=== PATIENT | female | born 1995 | race Caucasian/White ===

== ENCOUNTER 2025-08-05 14:39 | Outpatient (REF) | payer SELFPAY ==
--- OUTSIDE RECORDS SUMMARY | 2025-08-05 13:45 | XMS_ITS | Encounter Summary ---
Author Organization [employer] Address [address] [place] [address] [address] [place] [address] Care Team Providers Care Ophthalmic Lens Inspector Name Role Phone Anika Harrison MD Primary Care Provider [phone] Encounter Details Date Type Department Care Team (Late st Contact Info) Description 08/05/2025 1:45 PM EST Office Visit [facility] [address] [place], [place] [phone] Anika Harrison MD [address] [place], [place] [phone] Routine general medical examination at a health care facility (Primary Dx); Allergic rhinitis, unspecified seasonality, unspecified trigger; Intrinsic eczema; Low grade squamous intraepith lesion on cytologic smear cervix (lgsil); Chronic pain of both knees; Easy bruisability; Recurrent sinusitis; Arthralgia of both hands; Arthralgia of both knees Social History Tobacco Use Types Packs/Day Years Used Date Smoking Tobacco: Never Passive Smoke Exposure: Never Smokeless Tobacco: Never Depression Answer Date Recorded Patient Health Questionnaire-9 Score 0 08/05/2025 Patient Health Questionnaire-9 Score 0 08/05/2025 Last PHQ-9: Questionnaire Data Not on file 1 10/05/2024 Housing Stability Answer Date Recorded What is your housing situation today? I have monika pride 08/05/[address] you li ve. Do you have problems with any of the following? None of the above 08/05/2025 Food Insecurity Answer Date Recorded Within the past 12 months, y ou worried that your food would run out before you got money to buy more: Never True 08/05/2025 Within the past 12 months,th e food you bought just didn't last and you didn't have enough money to get more: Never True 07/2025 Transportation Answer Date Recorded In the past 12 months, has l ack of transportation kept you from medical appts, meetings, work or from getting things needed for daily living? No 08/05/2025 Utilities Answer Date Recorded In the past 12 months, has t he electric, gas, oil or water company threatened to shut off services in your home? No 08/05/2025 Depression Answer Date Recorded Patient Health Questionnaire-2 Score 0 08/05/2025 Internet Access Answer Date Recorded Internet Access Q1 Yes 08/05/2025 Internet Access Q2 Not on file 08/05/2025 Comments Unknown Sex and Gender Information Value Date Recorded Sex Assigned at Female 07/25/2022 10:14 AM EDT Legal Sex Female 10:14 AM EDT Gender Identity Female 07/25/2022 10:14 AM EDT Sexual Orientation Straight 07/25/2022 10 :14 AM EDT documented as of this encounter Last Filed Vital Signs Vital Sign Reading Time Taken Comments Blood Pressure 120/64 08/05/2025 1:52 PM EST Pulse 78 08/05/2025 1:52 PM EST Temperature 36.2 C (97.1 F) 08/05/2025 1:52 PM EST Respiratory Rate 20 08/05/2025 1:52 PM EST Oxygen Saturation 99% 08/05/2025 1:52 PM EST Inhaled Oxygen Concentration - - Weight 75.8 kg (167 lb) 08/05/2025 1:52 PM EST Height 156 cm (5' 1.42 ) 08/05/2025 1:52 PM EST Body Mass Index 31.12 08/05/2025 1:52 PM EST documented in this encounter Functional Status * Over the past 2 weeks, how often have you been bothered by any of the following problems? Question Answer Date of Assessment Author Patient Health Questionnaire -2 Score 0 08/05/2025 1:57 PM EST Mary Ellen Adkins MA * Little interest or pleasure in doing things Answer Date of Assessment Author Not at all 08/05/2025 1:57 PM EST Ambrocio Adkins MA * Feeling down, depressed, or hopeless Answer Date of Assessment Author Not at all 08/05/2025 1:57 PM Ambrocio Calvin MA * Trouble falling or staying asleep, or sleeping too much Answer Date of Assessment Author Not at all 08/05/2025 1:57 PM Ambrocio Calvin MA * Feeling tired or having little energy Answer Date of Assessment Author Not at all 08/05/2025 1:57 PM Ambrocio Calvin MA * Poor appetite or overeating Answer Date of Assessment Author Not at all 08/05/2025 1:57 PM Ambrocio Calvin MA * Feeling bad about yourself - or that you are a failure or have let yourself or your family down Answer Date of Assessment Author Not at all 08/05/2025 1:57 PM Ambrocio Calvin MA * Trouble concentrating on things, such as reading the newspaper or watching television Answer Date of Assessment Author Not at all 08/05/2025 1:57 PM Ambrocio Calvin MA * Moving or speaking so slowly that other people could have noticed? Or the opposite - being so fidgety or restless that you have been moving around a lot more than usual. Answer Date of Assessment Author Not at all 08/05/2025 1:57 PM Ambrocio Calvin MA * Thoughts that you would be better off or hurting yourself in some way Answer Date of Assessment Author Not at all 08/05/2025 1:57 PM Ambrocio Calvin MA * Patient Health Questionnaire-9 Score Answer Date of Assessment Author 0 08/05/2025 1:57 PM Ambrocio Calvin MA * Over the last 2 weeks, how often have you been bothered by any of the following problems? Question Answer Date of Assessment Author Feeling nervous, anxious, or on edge 0 08/05/2025 1:57 PM Mary Ellen Calvin MA Not being able to stop or co ntrol worrying 0 08/05/2025 1:57 PM Mary Ellen Calvin MA Worrying too much about diff erent things 0 08/05/2025 1:57 PM EST Mary Ellen Adkins MA Trouble relaxing 0 08/05/2025 1:57 PM EST Mary Ellen Valle MA Being so restless that it is hard to sit still 0 08/05/2025 1:57 PM EST Mary Ellen Adkins MA Becoming easily annoyed or irritable 0 08/05/2025 1:57 PM EST Mary Ellen Adkins MA Feeling afraid as if somethi ng awful might happen 0 08/05/2025 1:57 PM EST Mary Ellen Adkins MA ALEXANDER-7 Total Score 0 08/05/2025 1:57 PM EST Mary Ellen Adkins MA documented as of this encounter Miscellaneous Notes * Assessment & Plan Note - Anika Harrison MD - 08/05/2025 6:11 AM ESTAssociated Problem(s): Low grade squamous intraepith lesion on cytologic smear cervix (lgsil) 07/2023 PAP LSIL Plan: repeat PAP one year 08/2024 PAP Negative cytology Plan: repeat PAP 3 yrs documented in this encounter Plan of Treatment Scheduled Orders Name Type Priority Associated Diagnoses Orde r Schedule XR Knee 3 Views Left Imaging Routine Chronic pain of both knees Expected: 08/05/2025, Expires: 08/05/2026 XR Knee 3 Views Right Imaging Routine Chronic pain of both knees Expected: 08/05/2025, Expires: 08/05/2026 Comprehensive Metabolic Panel Lab Routine Recurrent sinusitis Expected: 08/05/2025 (Approximate), Expires: 08/05/2026 OANH Screen,IFA, with Reflex to Titer and Pattern Lab Routine Arthralgia of both hands Arthralgia of both knees Expected: 08/05/2025 (Approximate), Expires: 08/05/2026 Rheumatoid Factor Lab Routine Arthralgia of both hands Arthralgia of both knees Expected: 08/05/2025 (Approximate), Expires: 08/05/2026 Sed Rate by Modified [place] Lab Routine Arthralgia of both hands Arthralgia of both knees Expected: 08/05/2025 (Approximate), Expires: 08/05/2026 C-reactive Protein Lab Routine Arthralgia of both hands Arthralgia of both knees Expected: 08/05/2025 (Approximate), Expires: 08/05/2026 TSH with Reflex to Free T4 Lab Routine Arthralgia of both hands Arthralgia of both knees Expected: 08/05/2025 (Approximate), Expires: 08/05/2026 documented as of this encounter Procedures Procedure Name Priority Date/Time Associated Diagnosis Comments CBC WITH AUTO DIFFERENTIAL Routine 08/05/2025 2:51 PM EST Easy bruisability Recurrent sinusitis Arthralgia of both hands Arthralgia of both knees APTT Routine 08/05/2025 2:51 PM EST Easy bruisability PROTHROMBIN TIME-INR Routine 08/05/2025 2:51 PM EST Easy bruisability documented in this encounter Results * Prothrombin Time-INR (08/05/2025 2:51 PM EST) Prothrombin Time 11.9 11.2 - 13.5 SEC [facility] INTERNATIONAL NORM RATIO 1.0 0.9 - 1.1 [facility] Comment:INTERNATIONAL NORMAL IZED RATIO (INR) REFERENCE RANGES Reference RangeFor patients not on anticoagulant therapy: 0.9 - 1.1INR ranges for oral anticoagulanttherapy:For prevention and treatment of venous thrombosis and pulmonary embolism: 2.0 - 3.0For acute myocardial infarction with aspirin therapy: 2.0 - 3.0For acute myocardial infarction without aspirin therapy: 3.0 - 4.0For patients with mechanical prosthetic heart valves: 2.5 - 3.5 Blood Venous blood specimen / Unknown 08/05/2025 2:51 PM EST 08/05/2025 4:08 PM EST us Anika Harrison MD LAB BLOOD ORDERABLES Final Resul t [facility] [address] [place] [phone] * Partial Thromboplastin Time, Activated (APTT) (08/05/2025 2:51 PM EST) Pathologist [facility] Partial Thromboplastin Time 28.6 26.7 - 34.1 SEC [facility] Blood Venous blood specimen / Unknown 08/05/2025 2:51 PM EST 08/05/2025 4:08 PM EST us Anika Harrison MD LAB BLOOD ORDERABLES Final Resul t [facility] [address] [place] [phone] * (ABNORMAL) CBC auto differential (08/05/2025 2:51 PM EST) [facility] White Blood Count 5.9 4.8 - 10.8 X10*3/uL [facility] Red Blood Count 4.75 4.20 - 5.50 X10*6/uL [facility] Hemoglobin 12.8 12.0 - 16.0 g/dl [facility] Hematocrit 39.0 37.0 - 47.0 % [facility] Mean Corpuscular Volume 82.1 80.0 - 98.0 fL [facility] Mean Corpuscular Hemoglobin 26.9(L) 27.0 - 33.0 pg [facility] Mean Corpuscular HGB Conc 32.8 31.0 - 35.0 g/dl [facility] Red Cell Distribution Width 12.8 11.0 - 16.0 % [facility] Platelet Count 286 160 - 400 X10*3/uL [facility] Mean Platelet Volume 9.6 9.4 - 12.3 fL [facility] Neutrophils Percent Auto 45.1 45 - 73 % [facility] Imm Gran Pct Auto 0.3 0.0 - 0.4 % [facility] Lymphocytes Percent Auto 44.8(H) 20 - 40 % [facility] Monocytes Percent Auto 7.8 2 - 11 % [facility] Eosinophils Percent Auto 1.2 0 - 4 % [facility] Basophils Percent Auto 0.8 0 - 2 % [facility] NRBC Pct Auto 0.0 0.0 - 0.2 /100WBC [facility] Neutrophils Absolute Auto 2.7 2.0 - 8.3 x10*3/uL [facility] Imm Gran Abs Auto 0.02 0.00 - 0.03 X10*3/uL [facility] Lymphocytes Absolute Auto 2.7 1.2 - 4.9 X10*3/uL [facility] Monocytes Absolute Auto 0.5 0.1 - 1.2 X10*3/uL [facility] Eosinophils Absolute Auto 0.1 0.0 - 0.4 X10*3/uL [facility] Basophils Absolute Auto 0.1 0.0 - 0.2 X10*3/uL [facility] NRBC Abs Auto 0.000 0.0 - 0.012 X10*3/uL [facility] Blood Venous blood specimen / Unknown 08/05/2025 2:51 PM EST 08/05/2025 4:08 PM EST Anika Harrison MD LAB BLOOD ORDERABLES Final Resul t [facility] [address] [place] [address] [phone] documented in this encounter Visit Diagnoses Diagnosis Routine general medical examination at a health care facility- Primary Allergic rhinitis, unspecified seasonality, unspecified trigger Intrinsic eczema Low grade squamous intraepith lesion on cytologic smear cervix (lgsil) Chronic pain of both knees Easy bruisability Other symptoms involving skin and integumentary tissues Recurrent sinusitis Unspecified sinusitis (chronic) Arthralgia of both hands Arthralgia of both knees documented in this encounter Additional Health Concerns Assessment Noted Time PHQ-9 Depression Total Score: 0 08/05/20 25 1:57 PM EST documented as of this encounter Care Teams Ophthalmic Lens Inspector Relationship Specialty Start Date End Date Anika Harrison MD [address] [place] [phone] PCP - General Family Medicine 09/25/18 documented as of this encounter
[2025-08-05 16:10] LABS: MANUAL DIFF FLAG NO
[2025-08-05 16:22] LABS: INTERNATIONAL NORM RATIO 1.0 (0.9-1.1); Prothrombin Time 11.9 SEC (11.2-13.5)
[2025-08-05 16:24] LABS: Hematocrit 39.0 % (37.0-47.0); Hemoglobin 12.8 g/dl (12.0-16.0); Imm Gran Abs Auto 0.02 X10*3/uL (0.00-0.03); Imm Gran Pct Auto 0.3 % (0.0-0.4); Lymphocytes Absolute Auto 2.7 X10*3/uL (1.2-4.9); Mean Corpuscular HGB Conc 32.8 g/dl (31.0-35.0); Mean Corpuscular Hemoglobin 26.9 pg (27.0-33.0); Mean Corpuscular Volume 82.1 fL (80.0-98.0); NRBC Abs Auto 0.000 X10*3/uL (0.0-0.012); NRBC Pct Auto 0.0 /100WBC (0.0-0.2); Partial Thromboplastin Time 28.6 SEC (26.7-34.1); Platelet Count 286 X10*3/uL (160-400); Red Blood Count 4.75 X10*6/uL (4.20-5.50); White Blood Count 5.9 X10*3/uL (4.8-10.8)
--- OUTSIDE RECORDS SUMMARY | 2025-08-05 16:27 | XMS_ITS | Encounter Summary ---
Author Organization [employer] Address [address] [facility] [address] [place] [address] Care Team Providers Care Guest Advisor Name Role Phone Anika Harrison MD Primary Care Provider Encounter Details Date Type Department Care Team ([facility] st Contact Info) Description 06/22/2025 Orders Only [facility] [address] [place], [place] [phone] [place] Social History Tobacco Use Types Packs/Day Years Used Date Smoking Tobacco: Never Assessed Depression Answer Date Recorded Patient Health Questionnaire-9 Score 0 07/17/2024 Patient Health Questionnaire-9 Score 0 07/17/2024 Last PHQ-9: Questionnaire Data Not on file 1 Housing Stability Answer Date Recorded What is your housing situation today? I have monika pride 07/17/[address] you li ve. Do you have problems with any of the following? None of the above 07/17/2024 Food Insecurity Answer Date Recorded Within the past 12 months, y ou worried that your food would run out before you got money to buy more: Never True 07/17/2024 Within the past 12 months,th e food you bought just didn't last and you didn't have enough money to get more: Never True Transportation Answer Date Recorded In the past 12 months, has l ack of transportation kept you from medical appts, meetings, work or from getting things needed for daily living? No 07/17/2024 Utilities Answer Date Recorded In the past 12 months, has t he electric, gas, oil or water company threatened to shut off services in your home? No 07/17/2024 Depression Answer Date Recorded Patient Health Questionnaire-2 Score 0 07/17/2024 Internet Access Answer Date Recorded Internet Access Q1 Yes 07/17/2024 Internet Access Q2 Not on file 07/17/2024 Comments Unknown Sex and Gender Information Value Date Recorded Sex Assigned at Female 07/25/2022 10:14 AM EDT Legal Sex Female 10:14 AM EDT Gender Identity Female 07/25/2022 10:14 AM EDT Sexual Orientation Straight 07/25/2022 10 :14 AM EDT documented as of this encounter Plan of Treatment Not on file documented as of this encounter Procedures Procedure Name Priority Date/Time Associated Diagnosis Comments HM PAP/HPV Routine 06/22/2025 12:00 AM EDT documented in this encounter Results * HM PAP/HPV (06/22/2025 12:00 AM EDT) us Historical Provider HEALTH MAINTENANCE Final Result documented in this encounter Visit Diagnoses Not on filedocumented in this encounter Additional Health Concerns Assessment Noted Time PHQ-9 Depression Total Score: 0 07/17/20 24 10:37 AM EDT documented as of this encounter Care Teams Guest Advisor Relationship Specialty Start Date End Date Anika Harrison MD [address] [place] [phone] PCP - General Family Medicine 09/25/18 documented as of this encounter
--- OUTSIDE RECORDS SUMMARY | 2025-08-05 16:27 | XMS_ITS | Encounter Summary ---
Author Organization [employer] Address [address] [facility] [address] [place] [address] Care Team Providers Care Linemarker Name Role Phone Ankia Harrison MD Primary Care Provider [phone] Encounter Details Date Type Department Care Team (Latest Contact Info) Description 08/05/2025 Travel Social History Tobacco Use Types Packs/Day Years [...] AM EDT documented as of this encounter Functional Status * Over the past 2 weeks, how often have you been bothered by any of the following problems? Question Answer Date of Assessment Author Patient Health Questionnaire -2 Score 0 08/05/2025 1:57 PM Mary Ellen Calvin MA * Little interest or pleasure in doing things Answer Date of Assessment Author Not at all 08/05/2025 1:57 PM Ambrocio Calvin MA * Feeling down, depressed, or hopeless [...] or on edge 0 08/05/2025 1:57 PM EST Mary Ellen Adkins MA Not being able to stop or [...] annoyed or irritable 0 08/05/2025 1:57 PM Mary Ellen Calvin MA Feeling afraid as if somethi ng awful might happen 0 08/05/2025 1:57 PM EST Mary Ellen Adkins MA ALEXANDER-7 Total Score 0 08/05/2025 1:57 PM Mary Ellen Calvin MA documented as of this encounter Plan of Treatment Not on file documented as of this encounter Visit Diagnoses Not on filedocumented in this encounter Additional Health Concerns Assessment Noted Time PHQ-9 Depression Total Score: 0 08/05/20 25 1:57 PM EST documented as of this encounter Care Teams Linemarker Relationship Specialty Start Date End Date Anika Harrison MD [address] [place] [phone] PCP - General Family Medicine 09/25/18 documented as of this encounter
--- OUTSIDE RECORDS SUMMARY | 2025-08-05 16:27 | XMS_ITS | Clinical Summary ---
Author Organization [employer] Address [address] [place] [address] [address] [place] [address] Care Team Providers Care Manufacturing Inspector Name Role Phone Anika Harrison MD Primary Care Provider Allergies Active Allergy Reactions Criticality Noted Date Comments Sulfamethoxazole 2018 Trimethoprim 2018 Medications loratadine (Claritin) 10 MG tablet Take 1 tablet by mouth at bed time. 04/27/20 22 Active amoxicillin (Amoxil) 500 MG capsuleIndicat ions:Acute bacterial sinusitis Take 1 tab po bid for 10 days 20 capsule 07/29/20 25 Active ipratropium (Atrovent) 0.03 % nasal sprayIndicatio ns:Acute bacterial sinusitis Administer 1 spray into each nostril every 12 (twelve) hours. 30 mL 12 07/29/20 25 026 Active etonogestrel-e thinyl estradiol (Nuvaring) 0.12-0.015 MG/24HR vaginal ring INSERT 1 RING VAGINALLY DIRECTED. REMOVE AFTER 3 WEEKS & WAIT 7 DAYS BEFORE INSERTING A NEW RING Active montelukast (Singulair) 10 MG tablet Take 1 tablet (10 mg) by mouth at bedtime. 90 tablet 3 08/05/20 25 026 Active fluticasone (Flonase) 50 MCG/ACT nasal spray Administer 1 spray into each nostril Once per day. Shake gently. Before first use, prime pump. After use, clean tip and replace cap. 16 g 1 08/05/20 25 Active fluticasone (Flonase) 50 MCG/ACT nasal spray spray 1 spray by intranasal route every day in each nostril 04/27/20 025 Discontinued(Re order (will not trigger notification to Pharmacy)) Active Problems Problem Noted Date Diagnosed Date Chronic pain of both knees 08/05/2025 Low grade squamous intraepit h lesion on cytologic smear cervix (lgsil) 08/29/2023 Overview (08/05/2025): 07/2023 PAP LSIL Plan: repeat PAP one year 08/2024 PAP Negative cytology Plan: repeat PAP 3 yrs Assessment & Plan (08/05/2025 6:11 AM EST): 07/2023 PAP LSIL Plan: repeat PAP one year 08/2024 PAP Negative cytology Plan: repeat PAP 3 yrs Allergic rhinitis 11/25/2014 Assessment & Plan (07/21/2024 5:24 PM EDT): - previously prescribed loratadine and fluticasone nasal - may use prn when symptomatic Eczema 11/25/2014 Encounters Date Type Department Care Team Description 08/05/2025 1:45 PM EST Office Visit [facility] [address] [place] [address] [phone] Anika Harrison MD Routine general medical examination at a health care facility (Primary Dx); Allergic rhinitis, unspecified seasonality, unspecified trigger; Intrinsic eczema; Low grade squamous intraepith lesion on cytologic smear cervix (lgsil); Chronic pain of both knees; Easy bruisability; Recurrent sinusitis; Arthralgia of both hands; Arthralgia of both knees 08/05/2025 Travel 08/04/2025 Telephone [facility] [address] [place] [address] [phone] Anika Harrison MD chartprep 07/29/2025 11:00 AM EST Office Visit [facility] [address] [place] [address] [phone] Rebekah Cali MD Acute bacterial sinusitis (Primary Dx) 07/29/2025 Patient Outreach [facility] [address] [place] [phone] Anika Harrison MD Pre-visit Planning (Pre-visit planning - LVM ) 07/29/2025 Travel 06/22/2025 Orders Only [facility] [address] [place] [address] [place] 05/29/2025 Telephone [facility] [address] [place], [place] [phone] Anika Harrison MD june recall from Last 3 Months Immunizations Immunization Administration Dates Next Due DTaP 04/17/2006, 0,03/25/1996,06/25,04/25/1995,02/23/1995 HPV, Quadrivalent 02/27/2008,11/15/2007,09/14/20 07 Hep A, ped/adol, 2 dose 06/19/2012,02/17/2011 Hep B, Adolescent or Pediatric 06/25/1995,1994,02/23/1995 Hib ([facility]) 03/25/1996, 5,04/25/1995,02/23 IPV 06/06/2000, 5,04/25/1995,02/23 Influenza Injectable Quadriv alant Preservative Free IIV4 MDCK 09/09/2020,06/06/2019 Influenza, IIV3, injectable 08/04/2014 Influenza, Split (incl. leticia fied surface antigen) 06/19/2012 MMR 06/06/2000,1995 Meningococcal MCV4P ACYW-135 02/17/2011,04/17/20 04 TD (adult), 2 Lf tetanus tox oid, preservative free, adsorbed 12/05/2016 Td (adult), 5 Lf tetanus tox oid, preservative free, adsorbed 12/05/2016 Tdap 12/02/2020,04/17/2006 Family History Medical History Relation Name Comments Alcohol abuse Father Heart disease Father Hypertension Father Arthritis Mother Hyperthyroidism Mother Diabetes Paternal Grandmother Hypertension Paternal Grandmother Relation Name Status Comments Father Mother Paternal Grandmother Social History Tobacco Use Types Packs/Day Years [...] Orientation Straight 07/25/2022 10 :14 AM EDT Last Filed Vital Signs Vital Sign Reading [...] Mass Index 31.12 08/05/2025 1:52 PM EST Plan of Treatment Health Maintenance Due Date Last Done Comments Alcohol/Substance Use Screening 2006 Family Planning (PISQ) 2009 COVID-19 Vaccine ( season) 2025 05/25/2021, 05/04/2021 Influenza Vaccine (#1) 2025 , 06/06/2019, 08/04/2014, Additional history exists Depression Screening 08/05/2026 08/05/2025, 08/05/20 25 Disability Screening 08/05/2026 08/05/2025 SDOH Screening 08/05/2026 08/05/2025 Tobacco Screening 08/05/2026 08/05/2025 Cervical Cancer Screening 06/22/2028 HPV/Cotest 06/22/2028 Pap Smear 06/22/2028 06/22/2025 DTaP/Tdap/Td Vaccines (11 - Td or Tdap) 12/02/2030 12/02/2020, 12/05/2016, 12/05/2016, Additional history exists Zoster Vaccines (1 of 2) 2044 RSV Patients and Patients Aged 60 years or older (1 - 1-dose 75+ series) 2069 Hepatitis B Vaccines Completed 06/25/1995, 04/25/1995, 02/23/1995 HIB Vaccines Completed 03/25/1996, 09/1994, 04/25/1995, Additional history exists IPV Vaccines Completed 06/06/2000, 09/1994, 04/25/1995, Additional history exists HPV Vaccines Completed 02/27/2008, 10/27, 09/14/2007 Meningococcal Vaccine Completed 02/17/2011, 004 Hepatitis A Vaccines Completed 06/19/2012, 02/18/20 11 HIV Screening Completed 08/23/2021, 07/27, 04/16/2020, Additional history exists Hepatitis C Screening Completed 08/23/2021 , 08/17/2021, 04/16/2020, Additional history exists Meningococcal B Vaccine Aged Out No l onger eligible based on patient's age to complete this topic Pneumococcal Vaccine: Pediatrics (0 to 5 Years) and At-Risk Patients (6 to 49) Years Aged Out No longer eligible based on patient's age to complete this topic RSV under 20 months Aged Out No longe r eligible based on patient's age to complete this topic Rotavirus Vaccines Aged Out No longer eligible based on patient's age to complete this topic Procedures Procedure Name Priority Date/Time Associated Diagnosis Comments PROTHROMBIN TIME-INR Routine 08/05/2025 2:51 PM EST Easy bruisability APTT Routine 08/05/2025 2:51 PM EST Easy bruisability CBC WITH AUTO DIFFERENTIAL Routine 08/05/2025 2:51 PM EST Easy bruisability Recurrent sinusitis Arthralgia of both hands Arthralgia of both knees POCT INFLUENZA A Routine 07/29/2025 11:2 3 AM EST Acute bacterial sinusitis POCT RAPID COVID ANTIGEN Routine 07/29/2025 11:22 AM EST Acute bacterial sinusitis POCT INFLUENZA B Routine 07/29/2025 11:2 2 AM EST Acute bacterial sinusitis POCT RAPID STREP A Routine 07/29/2025 11 :21 AM EST Acute bacterial sinusitis HM PAP/HPV Routine 06/22/2025 12:00 AM EDT ZZZ HISTORICAL HEPATITIS C AB W/REFL TO HCV RNA, QN, PCR Routine 08/23/2021 3:34 PM EST HIV 1/2 ANTIGEN/ANTIBODY, FOURTH GENERATION W/RFL Routine 08/23/2021 3:34 PM EST from Last 3 Months or Most Recently Relevant to Health Maintenance Results * (ABNORMAL) CBC auto differential (08/05/2025 2:51 PM EST) White Blood Count 5.9 4.8 - 10.8 X10*3/uL [facility] Red Blood Count 4.75 4.20 - 5.50 X10*6/uL [facility] Hemoglobin 12.8 12.0 - 16.0 g/dl [facility] Hematocrit 39.0 37.0 - 47.0 % [facility] Mean Corpuscular Volume 82.1 80.0 - 98.0 fL [facility] Mean Corpuscular Hemoglobin 26.9(L) 27.0 - 33.0 pg [facility] Mean Corpuscular HGB Conc 32.8 31.0 - 35.0 g/dl [facility] Red Cell Distribution Width 12.8 11.0 - 16.0 % [facility] Platelet Count 286 160 - 400 X10*3/uL [facility] Mean Platelet Volume 9.6 9.4 - 12.3 fL [facility] Neutrophils Percent Auto 45.1 45 - 73 % [facility] Imm Gran Pct Auto 0.3 0.0 - 0.4 % [facility] Lymphocytes Percent Auto 44.8(H) 20 - 40 % [facility] Monocytes Percent Auto 7.8 2 - 11 % [facility] Eosinophils Percent Auto 1.2 0 - 4 % [facility] Basophils Percent Auto 0.8 0 - 2 % [facility] NRBC Pct Auto 0.0 0.0 - 0.2 /100WBC [facility] Neutrophils Absolute Auto 2.7 2.0 - 8.3 x10*3/uL [facility] Imm Gran Abs Auto 0.02 0.00 - 0.03 X10*3/uL [facility] Lymphocytes Absolute Auto 2.7 1.2 - 4.9 X10*3/uL [facility] Monocytes Absolute Auto 0.5 0.1 - 1.2 X10*3/uL [facility] Eosinophils Absolute Auto 0.1 0.0 - 0.4 X10*3/uL [facility] Basophils Absolute Auto 0.1 0.0 - 0.2 X10*3/uL [facility] NRBC Abs Auto 0.000 0.0 - 0.012 X10*3/uL [facility] Blood Venous blood specimen / Unknown 08/05/2025 2:51 PM EST 08/05/2025 4:08 PM EST us Anika Harrison MD LAB BLOOD ORDERABLES Final Resul t Performing Organization Address [facility] Co de Phone Number [facility] [address] [place] [address] [phone] * Partial Thromboplastin Time, Activated (APTT) (08/05/2025 2:51 PM EST) Partial Thromboplastin Time 28.6 26.7 - 34.1 SEC [facility] Blood Venous blood specimen / Unknown 08/05/2025 2:51 PM EST 08/05/2025 4:08 PM EST us Anika Harrison MD LAB BLOOD ORDERABLES Final Resul t Performing Organization Address [facility] Phone Number [facility] [address] [place] [address] [phone] * Prothrombin Time-INR (08/05/2025 2:51 PM EST) Prothrombin Time 11.9 11.2 - 13.5 SEC [facility] INTERNATIONAL NORM RATIO 1.0 0.9 - 1.1 [facility] Comment:INTERNATIONAL NORMAL IZED RATIO (INR) [...] MD LAB BLOOD ORDERABLES Final Resul t Performing Organization Address [facility] Co de Phone Number [facility] [address] [place] [address] [phone] * POCT Influenza A manually resulted (07/29/2025 11:23 AM EST) [facility] Rapid Influenza A Ag Negative Negative, Indeterminate QC Media Lot # [id number] Lot# Expiration Date Swab Nasopharyngeal structure / Unknown 07/29/2025 11:23 AM EST Result [facility] Rebekah Cali MD POINT OF CARE TEST ENTER/E DIT ORDERABLES Final Result * POCT Rapid COVID Ag (07/29/2025 11:22 AM EST) [facility] Rapid COVID Ag Negative QC Media Lot # [id number] Lot# Expiration Date ,826 Swab 07/29/2025 11:2 2 AM EST Result [facility] Rebekah Cali MD POINT OF CARE TEST ENTER/E DIT ORDERABLES Final Result * POCT Influenza B manually resulted (07/29/2025 11:22 AM EST) [facility] Rapid Influenza B Ag Negative Negative, Indeterminate QC Media Lot # [id number] Lot# Expiration Date Swab 07/29/2025 11:2 2 AM EST Result [facility] Rebekah Cali MD POINT OF CARE TEST ENTER/E DIT ORDERABLES Final Result * POCT rapid strep A manually resulted (07/29/2025 11:21 AM EST) [facility] Rapid Strep A Screen Negative Negative, None Detected QC Media Lot # [id number] Lot# Expiration Date ,027 Swab 07/29/2025 11:2 1 AM EST Result [facility] us Rebekah Cali MD POINT OF CARE TEST ENTER/E DIT ORDERABLES Final Result * HM PAP/HPV (06/22/2025 12:00 AM EDT) Randy Messina MD HEALTH MAINTENANCE Final Result * HEPATITIS C AB W/REFL TO HCV RNA, QN, PCR (08/23/2021 3:34 PM EST) HEPATITIS C ANTIBODY NON-REACT JERRY NON-REACT JERRY [facility] INDEX 0.01 <1.00 [facility] Comment: HCV antibody was non-reactive. There is no laboratory evidence of HCV infection. In most cases, no further action is required. However, if recent HCV exposure is suspected, a test for HCV RNA (test code 61630) is suggested. For additional information please refer to http://[employer] Network/faq/JTO77c6 (This link is being provided for informational/ educational purposes only.) 08/23/2021 3:34 PM EST us Denise MCKINNEY HISTORICAL/NON ORDERABLE LABS Final Result [facility] [address] * HIV 1/2 ANTIGEN/ANTIBODY,FOURTH GENERATION W/RFL (08/23/2021 3:34 PM EST) HIV-1/2 ANTIGEN AND ANTIBODIES, 4TH GENERATION W/ REFLEX NON-REACT JERRY NON-REACT JERRY [facility] Comment: HIV-1 antigen and HIV-1/HIV-2 antibodies were not detected. There is no laboratory evidence of HIV infection. PLEASE NOTE: This information has been disclosed to you from records whose confidentiality may be protected by state law. If your state requires such protection, then the state law prohibits you from making any further disclosure of the information without the specific written consent of the person to whom it pertains, or as otherwise permitted by law. A general authorization for the release of medical or other information is NOT sufficient for this purpose. For additional information please refer to http://[employer].Ideal Network/faq/YNK936 (This link is being provided for informational/ educational purposes only.) The performance of this assay has not been clinically validated in patients less than 2 years old. 08/23/2021 3:34 PM EST us Denise Makris MACHINE PECAN GATHERER LAB BLOOD ORDERABLES Final Res [facility] [address] from Last 3 Months or Most Recently Relevant to Health Maintenance Insurance [facility] , [address] [place] [address] Care Teams Manufacturing Inspector Relationship Specialty Start Date End Date Anika Harrison MD [address] [place] [phone] PCP - General Family Medicine 09/25/18
--- OUTSIDE RECORDS SUMMARY | 2025-08-05 16:27 | XMS_ITS | Clinical Summary ---
Author Organization [facility] Address [address] [place] [address] Phone Care Team Providers Care Framer Name Role Phone Anika Harrison MD Primary Care Provider Allergies Active Allergy Reactions Criticality Noted Date Comments Sulfamethoxazole 2018 Sulfate Ion Hives Low 07/29/2020 Trimethoprim 2018 Medications LORATADINE ORAL Take by mouth. Active fluticasone propionate (FLONASE) 50 mcg/actuation nasal spray spray 1 spray by intranasal route every day in each nostril 2 Active azithromycin (ZITHROMAX) 500 mg tablet TAKE 2 TABLETS (1,000 MG TOTAL) BY MOUTH ONE TIME FOR 1 DOSE 4 Active etonogestreL-et hinyl estradioL (NUVARING) 0.12-0.015 mg/24 hr vaginal ring Insert vaginally and leave in place for 3 consecutive weeks, then remove for 1 week. 3 each 4 5 Active Active Problems Problem Noted Date Diagnosed Date Low grade squamous intraepit h lesion on cytologic smear cervix (lgsil) 08/29/2023 Overview (10/10/2024): 07/2023 PAP LSIL Plan: repeat PAP one year 08/2024 PAP Negative cytology Plan: repeat PAP 3 yrs Allergic rhinitis 11/25/2014 Eczema 11/25/2014 Immunizations Immunization Administration Dates Next Due DTaP (Infanrix) 6wks to less than 7yo ,06/06/2000,03/25/1996,06/25,04/25/1995,02/23/1995 HPV, Quadrivalent 02/27/2008,11/15/2007,09/14/20 07 Hepatitis A Pediatric (Havri x; Vaqta) 12mo to less than 19yo 06/19/2012,02/17/2011 Hepatitis B Pediatric (Enger ix B; Recombivax HB) to less than 20 yo 06/25/1995,04/25/1995,02/23/1995 Hib (HbOC) 03/25/1996, 5,04/25/1995,02/23 IPV Inactivated polio (Ipol) 6wks and older 06/06/2000,06/25/1995,04/25/1995,02/23 Influenza Quadravalent, MDCK , 0.5ml, preservative free (Flucelvax) 6mo and older 09/09/2020,06/06/2019 Influenza Split 06/19/2012 Influenza trivalent, with pr eservative (Fluzone; Afluria) 6mo and older 08/04/2014 MMR, measles mumps and rubel la Live (Priorix; M-M-R II) 12mo and older 06/06/2000,1995 Meningococcal MCV4P 02/17/2011,04/17/2004 Pfizer SARS-CoV-2 COVID-19, mRNA, LNP-S, preservative free 05/25/2021,05/04/2021 Td Tetanus diptheria, preser vative free (Tenivac) 7yo and older 12/05/2016 Tdap Tetanus diptheria acell ular pertussis (Boostrix; Adacel) 7yo and older 12/02/2020,04/17/2006 Surgical History Surgery Date Site/Laterality Comments OTHER SURGICAL HISTORY PROCEDURE: DENIES PREVIOUS SURGERY Medical History Medical History Date Comments Seasonal allergies DX:Seasonal a llergies History of 2019 novel yu virus disease (COVID-19) DX:History of 2019 novel cor onavirus disease (COVID-19) Lab test positive for detect ion of COVID-19 virus 10/22/2020 DX:Lab test positive for det ection of COVID-19 virus; COMMENT: Pt was exposed to boyfriend and his mother. Pt was SYMPTOMATIC- diarrhea and fatigue Tested positive 10/16/2020 Follow up testing neg on 11/03/2020 Family History Medical History Relation Name Comments Breast cancer Aunt mom aleah maternal aunt; mastectomy amd is cancer free Hypertension Father Other: etoh abuse Father stopped ET [place] 07/2017 Stroke Father - Lung cancer Maternal Grandfather Coronary artery disease Maternal Grandmother Arthritis Mother Hyperthyroidism Mother Other: hydrocephalus and dandy walker syndrome Sister 1 No Known Problems Sister 2 No Known Problems Sister 3 Relation Name Status Comments Aunt mom aleah Father Maternal Grandfather Maternal Grandmother Mother Alive Sister 1 Alive Sister 2 Alive Sister 3 Alive Social History Tobacco Use Types Packs/Day Years Used Date Smoking Tobacco: Never Smokeless Tobacco: Never Tobacco Cessation:Counseling Given: Not Answered Alcohol Use Standard Drinks/Week Comments Not Currently 0 (1 standard drink = 0.6 oz pur e alcohol) Comments Unknown Sex and Gender Information Value Date Recorded Sex Assigned at Female 09/19/2024 11:23 AM EST Legal Sex Female 6:16 PM EST Gender Identity Female 09/19/2024 11:23 AM EST Sexual Orientation Straight 09/19/2024 11 :23 AM EST 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 on file Not on file Not on file Obstetrics History Para Term AB IAB SAB Ectopic Multiple Livin g Live Births 1 1 1 1 1 Date Outcome GA Total Labor Labor/2nd/3rd Weight Sex Type Anes PTL [place] A1 A5 Name Clin 2020 Term 39w 4d 3317 g (117 oz) M Vag-S pont Epidur al Livin g Alexan Flanagan r CN Delivery Location:[facility] Last Filed Vital Signs Vital Sign Reading Time Taken Comments Blood Pressure 121/85 10/10/2024 2:46 PM EST Pulse 72 10/10/2024 2:46 PM EST Temperature - - Respiratory Rate - - Oxygen Saturation - - Inhaled Oxygen Concentration - - Weight 71.7 kg (158 lb) 10/10/2024 2:46 PM EST Height 154.9 cm (5' 1 ) 10/10/2024 2:46 PM EST Body Mass Index 29.85 10/10/2024 2:46 PM EST Plan of Treatment Health Maintenance Due Date Last Done Comments Social Influencers of Health Screening 08/27/2022 Depression Screening 09/25/2024 COVID-19 Vaccine ( season) 2025 05/25/2021, 05/04/2021 Influenza Vaccine (#1) 2025 , 06/06/2019, 08/04/2014, Additional history exists Cervical Cancer Screening: HPV 08/04/2028 08/04/2023 DTaP,Tdap,and Td Vaccines (10 - Td or Tdap) 12/02/2030 12/02/2020, 12/05/2016, 04/17/2006, Additional history exists RSV Immunization Adult Patients (1 - 1-dose 75+ series) 2069 Hepatitis B Vaccines Completed 06/25/1995, 04/25/1995, 02/23/1995 HIB Vaccines Completed 03/25/1996, 09/1994, 04/25/1995, Additional history exists IPV Vaccines Completed 06/06/2000, 09/1994, 04/25/1995, Additional history exists MMR Vaccines Completed 06/06/2000, 1995 HPV Vaccines Completed 02/27/2008, 10/27, 09/14/2007 Meningococcal ACWY Vaccine Completed 02/17/2011, Hepatitis A Vaccines Completed 06/19/2012, 02/18/20 11 Hepatitis C Screening Completed 08/05/2020 HIV Screening Completed 08/23/2021, 08/05/2020 Meningococcal B Vaccine Aged Out No l onger eligible based on patient's age to complete this topic Pneumococcal Vaccine: Pediatrics (0 to 5 Years) and At-Risk Patients (6 to 49 Years) Aged Out No longer eligible based on patient's age to complete this topic RSV Immunization Patients Under 20 months Aged Out No longer eligible based on patient's age to complete this topic Varicella Vaccines Aged Out No longer eligible based on patient's age to complete this topic Procedures Procedure Name Priority Date/Time Associated Diagnosis Comments HM HPV Routine 08/04/2023 HEPATITIS C SCREENING Routine 08/05/2020 HIV SCREENING Routine 08/05/2020 from Last 3 Months or Most Recently Relevant to Health Maintenance Results * Cervical Cancer Screening: HPV (08/04/2023) Cervical Cancer Screening: HPV negative interpretation abstracted Historical Provider HEALTH MAINTENANCE Final Result * HIV Screening (08/05/2020) Pathologist [facility] HIV Screening abstracted Historical Provider HEALTH MAINTENANCE Final Result * Hepatitis C Screening (08/05/2020) Pathologist [facility] Hepatitis C Screening abstracted Historical Provider HEALTH MAINTENANCE Final Result from Last 3 Months or Most Recently Relevant to Health Maintenance Insurance [facility] Care Teams Framer Relationship Specialty Start Date End Date Anika Harrison MD [address] [place] [phone] PCP - General 09/21/17
--- OUTSIDE RECORDS SUMMARY | 2025-08-05 16:27 | XMS_ITS | Encounter Summary ---
Author Organization [employer] Address [address] [place] [address] Care Team Providers Care Diesel Truck Mechanic Name Role Phone Anika Harrison MD Primary Care Provider [phone] Reason for Visit * Reason Onset Date Comments chartprep 08/04/2025 Encounter Details Date Type Department Care Team ([facility] st Contact Info) Description 08/04/2025 Telephone [facility] [address], [place] [phone] Anika Harrison MD [address] [place] [address] chartprep Social History Tobacco Use Types Packs/Day Years [...] AM EDT documented as of this encounter Miscellaneous Notes * Telephone Encounter - Crystal Jeronimo [place] - 08/04/2025 2:24 PM EST ..Chart Prep Labs: not applicable Images: not applicable Vaccines due: Covid Due and Flu Due Referrals: Not Applicable Screenings: Not Applicable Overdue care gaps: Sbirt, SDOH, PHQ9, Disability , and Oral Health documented in this encounter Plan of Treatment Not on file documented as of this encounter Visit Diagnoses Not on filedocumented in this encounter Additional Health Concerns Assessment Noted Time PHQ-9 Depression Total Score: 0 07/17/20 24 10:37 AM EDT documented as of this encounter Care Teams Diesel Truck Mechanic Relationship Specialty Start Date End Date Anika Harrison MD [address] [place] [phone] PCP - General Family Medicine 09/25/18 documented as of this encounter
[2025-08-05 16:53] LABS: Alanine Aminotransferase 17 U/L (0-31); Albumin Level 4.3 g/dL (3.5-5.0); Alkaline Phosphatase 50 U/L (39-117); Anion Gap 10 (12-20); Aspartate Amino Transferase 30 U/L (5-31); Blood Urea Nitrogen 11 mg/dL (9-16); Calcium 9.3 mg/dL (8.4-10.2); Carbon Dioxide 28 mmol/L (22-29); Chloride 104 mmol/L (96-108); Estimated Glomerular Filt Rate > 60; Potassium 3.7 mmol/L (3.3-5.1); Sodium 138 mmol/L (135-145); Total Protein 7.3 g/dL (6.5-8.0)
[2025-08-11 11:58] LABS: Anti Nuclear Antibody Pattern Nuclear, Nucleolar; Anti Nuclear Antibody Screen POSITIVE (NEGATIVE); Anti Nuclear Antibody Titer 1:160 titer
== END 2025-08-05 14:40 | disposition home or self-care (01) ==
LOC: HO.HHCX 14:39
PROVIDERS: PCP Family Medicine; Visit Provider Family Medicine
DX: Z01.84 Encounter for antibody response examination (principal); R23.3 Spontaneous ecchymoses; G89.29 Other chronic pain; J32.9 Chronic sinusitis, unspecified; M25.541 Pain in joints of right hand; M25.542 Pain in joints of left hand; M25.561 Pain in right knee; M25.562 Pain in left knee; Z13.29 Encounter for screening for other suspected endocrine disorder
CPT/HCPCS: 36415; 80053; 84443; 85025; 85610; 85652; 85730; 86038; 86039; 86140; 86431